=== PATIENT | female | born 1955 | race Caucasian/White ===

== ENCOUNTER 2020-04-09 12:42 | Outpatient (CLI) | payer MEDICARE, SELFPAY ==
--- NOTE | ~2020-04-09 | DEXA_ITS ---
Bone Density Report Name: Arcelia Dunbar Age: 65 Sex: Female Ethnicity: White Date of : 1955 Indication: osteopenia; parental hip fracture; height loss; hysterectomy; Referring Provider: SHA DARDEN Study: Bone densitometry was performed. Exam Date: April 09, 2020 Accession number: [id number] Bone Density: Region BMD T-score Z-score Classification AP Spine (L1, L2, L3) 1.144 1.1 2.9 Normal Femoral Neck (Left) 0.630 -2.0 -0.4 Osteopenia Total Hip (Left) 0.769 -1.4 -0.1 Osteopenia Total Hip Bilateral Avg 0.751 -1.6 -0.3 Osteopenia Femoral Neck (Right) 0.609 -2.2 -0.6 Osteopenia Total Hip (Right) 0.733 -1.7 -0.4 Osteopenia World Health Organization criteria for BMD impression classify patients as: Normal (T-score at or above -1.0), Osteopenia (T-score between -1.0 and -2.5), or Osteoporosis (T-score at or below -2.5). 10-year Fracture Risk(1): Major Osteoporotic Fracture 20% Hip Fracture 2.4% Reported Risk Factors: [place] (), Neck BMD=0.609, BMI=28.0, parental fracture (1) FRAX(R) Version 3.08. Fracture probability calculated for an untreated patient. Fracture probability may be lower if the patient has received treatment. Previous Exams: Region Exam Age BMD T-score BMD Change BMD Change Date g/cm2 vs Baseline vs Previous AP Spine(L1, L2, L3) 04/09/2020 65 1.144 1.1 0.049(4.5%)# 0.008(0.7%) 03/14/2017 62 1.136 1.1 0.042(3.8%)# 0.048(4.4%)* 02/13/2015 60 1.088 0.6 -0.006(-0.6%)# -0.006(-0.6%)# 12/26/2012 57 1.094 0.7 Total Hip(Left) 04/09/2020 65 0.769 -1.4 -0.030(-3.8%)# -0.037(-4.6%)* 03/14/2017 62 0.806 -1.1 0.007(0.8%)# 0.022(2.8%) 02/13/2015 60 0.784 -1.3 -0.015(-1.9%)# -0.015(-1.9%)# 12/26/2012 57 0.800 -1.2 Total Hip(Right) 04/09/2020 65 0.733 -1.7 -0.062(-7.8%)# -0.015(-2.0%) 03/14/2017 62 0.748 -1.6 -0.047(-5.9%)# -0.015(-2.0%) 02/13/2015 60 0.763 -1.5 -0.031(-3.9%)# -0.031(-3.9%)# 12/26/2012 57 0.794 -1.2 *Denotes significance at 95% confidence level, LSC for AP Spine = 0.022 g/cm2, LSC for Total Hip = 0.027 g/cm2 Clinical Information Provided by Patient: Parent has had a hip fracture Has used the following medications: Vitamin D, Calcium Has the following medical conditions: Hysterectomy Patient maximum height was 66 Menopause Age: 28 Drinks caffeinated beverages Onset of menses at age 11 Number of children 2
--- NOTE | ~2020-04-09 | MM_ITS ---
EXAMINATION: MM screening natali BI w colton HISTORY: Screening mammogram TECHNIQUE: Craniocaudal and mediolateral oblique 3-D tomosynthesis images were obtained and synthetic 2-D images were generated. CAD analysis was submitted and interpreted. COMPARISON: 03/20/2019, 03/16/2018, 03/14/2017 bilateral digital screening mammogram examinations BREAST PARENCHYMAL COMPOSITION: There are scattered areas of fibroglandular density. FINDINGS: Bilateral benign axillary tail lymph nodes. There is no evidence of suspicious mass, calcif ication, or architectural distortion to suggest malignancy in either breast. There has been no suspic ious interval change. IMPRESSION: 1. No mammographic evidence of malignancy. 2. Recommend routine screening mammography in one year. BI-RADS Category 2: Benign finding(s). Reviewed, dictated and finalized at location A. RVISOR WHITE SUGAR
== END 2020-04-09 12:43 | disposition home or self-care (01) ==
LOC: ANHIMG 12:46
PROVIDERS: PCP Family Medicine; Visit Provider Obstetrics & Gynecology Gynecology
DX: Z12.31 Encounter for screening mammogram for malignant neoplasm of breast (principal); Z78.0 Asymptomatic menopausal state; M85.852 Other specified disorders of bone density and structure, left thigh; M85.851 Other specified disorders of bone density and structure, right thigh
CPT/HCPCS: 77063; 77067; 77080

== ENCOUNTER 2021-01-19 08:22 | Outpatient (CLI) | payer MEDICARE, SELFPAY ==
--- NOTE | ~2021-01-19 | US_ITS ---
EXAMINATION: US abdomen limited EXAM DATE: 01/19/2021 09:29 INDICATION: R19.7 - Diarrhea, unspecified. TECHNIQUE: Multiple grayscale and Doppler images of the abdomen right upper quadrant were obtained (b y a technologist who performed the scan) and subsequently reviewed. There is no prior study for minal jay. FINDINGS: The pancreatic head and body are normal in appearance. The pancreatic tail is not visualized. The l iver has normal echogenicity and contour. There are no focal liver lesions identified. There is no evidence of intrahepatic biliary duct dilation. Portal venous flow was seen in the hepatopedal, nor mal direction and has normal Doppler waveform. No right-sided hydronephrosis. Common bile duct measures 4 mm, which is normal. The gallbladder wall is normal in thickness, with ex pected amount of distention. No sonographic evidence of pericholecystic fluid. There is no cholelit hiases. Technologist performing exam reports patient did not demonstrate sonographic Griffin's sign. Please note that this sign is less reliable in patients who have received pain medication. IMPRESSION: 1. Unremarkable abdominal ultrasound exam. Reviewed, dictated and finalized at location A. T CAREGIVER
== END 2021-01-19 08:23 | disposition home or self-care (01) ==
LOC: ANHIMG 08:24
PROVIDERS: PCP Family Medicine; Visit Provider Family Medicine
DX: R19.7 Diarrhea, unspecified (principal)
CPT/HCPCS: 76705

== ENCOUNTER 2021-04-21 09:12 | Outpatient (CLI) | payer MEDICARE, SELFPAY ==
--- NOTE | ~2021-04-21 | MM_ITS ---
EXAMINATION: MM screening natali BI w colton HISTORY: Screening mammogram TECHNIQUE: Craniocaudal and mediolateral oblique 3-D tomosynthesis images were obtained and synthetic 2-D images were generated. CAD analysis was submitted and interpreted. COMPARISON: April 09, 2020, March 20, 2019, March 16, 2018 bilateral screening mammogram exami nations BREAST PARENCHYMAL COMPOSITION: There are scattered areas of fibroglandular density. FINDINGS: There is no evidence of suspicious mass, calcification, or architectural distortion to sugg est malignancy in either breast. There has been no suspicious interval change. IMPRESSION: 1. No mammographic evidence of malignancy. 2. Recommend routine screening mammography in one year. BI-RADS Category 1: Negative Reviewed, dictated and finalized at location A. EMS ACCOUNTANT
== END 2021-04-21 09:13 | disposition home or self-care (01) ==
PROVIDERS: PCP Family Medicine; Visit Provider Obstetrics & Gynecology Gynecology
DX: Z12.31 Encounter for screening mammogram for malignant neoplasm of breast (principal)
CPT/HCPCS: 77063; 77067

== ENCOUNTER 2021-09-22 11:04 | Outpatient (CLI) | payer MEDICARE, SELFPAY ==
--- NOTE | ~2021-09-22 | XR_ITS ---
EXAMINATION: XR chest 2V 09/22/2021 11:18 INDICATION: Cough PROCEDURE: 2 view chest COMPARISON: 03/01/2013 FINDINGS: The lungs are clear. The cardiomediastinal silhouette is within normal limits. There are no pleural effusions. There is no pneumothorax suspected. There is a calcified granuloma right midl marybeth. IMPRESSION: 1: NO ACUTE CARDIOPULMONARY DISEASE. Reviewed, dictated and finalized at location A.
== END 2021-09-22 11:05 | disposition home or self-care (01) ==
PROVIDERS: PCP Family Medicine; Visit Provider Family Medicine
DX: R05.9 Cough, unspecified (principal)
CPT/HCPCS: 71046

== ENCOUNTER → 2022-04-16 14:09 | Outpatient (CLI) | payer MEDICARE, SELFPAY ==
--- NOTE | ~2022-04-16 | XR_ITS ---
XR hip BI 2V w AP pelvis DATE: 04/16/2022 14:28 INDICATION: Hip pain TECHNIQUE: AP pelvis. AP and lateral views of each hip. COMPARISON: None FINDINGS: No pelvic fracture or bone destruction. There is degenerative change but normal alignment a t the pubic symphysis. The sacroiliac joints are intact. No fracture or dislocation, avascular necrosis or bone destruction of either hip. Hip joint spaces ar e symmetric and relatively well preserved. IMPRESSION: Degenerative change at the pubic symphysis Reviewed, dictated and finalized at location A. L TECHNICIAN
== END ==
PROVIDERS: PCP Family Medicine; Visit Provider Nurse Practitioner Gerontology
DX: M25.559 Pain in unspecified hip (principal)
CPT/HCPCS: 73521

== ENCOUNTER 2022-04-22 08:32 | Outpatient (CLI) | payer MEDICARE, SELFPAY ==
--- NOTE | ~2022-04-22 | MM_ITS ---
EXAMINATION: MM screening natali BI w colton HISTORY: Screening mammogram TECHNIQUE: Craniocaudal and mediolateral oblique 3-D tomosynthesis images were obtained and synthetic 2-D images were generated. CAD analysis was submitted and interpreted. COMPARISON: April 21, 2021, April 09, 2020, March 20, 2019 bilateral screening mammogram exam inations BREAST PARENCHYMAL COMPOSITION: There are scattered areas of fibroglandular density. FINDINGS: There is no evidence of suspicious mass, calcification, or architectural distortion to sugg est malignancy in either breast. There has been no suspicious interval change. IMPRESSION: 1. No mammographic evidence of malignancy. 2. Recommend routine screening mammography in one year. BI-RADS Category 1: Negative Reviewed, dictated and finalized at location A. AND BEVERAGE CHECKER
--- NOTE | ~2022-04-22 | DEXA_ITS ---
Bone Density Report Name: ANGELES GARCIA Age: 67 Sex: Female Ethnicity: White Date of : 1955 Indication: osteopenia; hysterectomy; postmenopausal Referring Provider: ALANIS, WILLIAN Study: Bone densitometry was performed. Exam Date: April 22, 2022 Accession number: [id number] Bone Density: Region BMD T-score Z-score Classification AP Spine(L1, L2, L3) 1.118 0.9 2.9 Normal Femoral Neck (Left) 0.622 -2.0 -0.4 Osteopenia Total Hip (Left) 0.767 -1.4 0.0 Osteopenia Femoral Neck (Right) 0.621 -2.1 -0.4 Osteopenia Total Hip (Right) 0.773 -1.4 0.0 Osteopenia Total Hip Mean 0.770 -1.4 0.0 Osteopenia World Health Organization criteria for BMD impression classify patients as: Normal (T-score at or above -1.0), Osteopenia (T-score between -1.0 and -2.5), or Osteoporosis (T-score at or below -2.5). 10-year Fracture Risk(1): Major Osteoporotic Fracture 11% Hip Fracture 2.0% Reported Risk Factors: [place] (), Neck BMD=0.622, BMI=29.4 (1) FRAX(R) Version 3.08. Fracture probability calculated for an untreated patient. Fracture probability may be lower if the patient has received treatment. Previous Exams: Region Exam Age BMD T-score BMD Change BMD Change Date g/cm2 vs Baseline vs Previous AP Spine (L1-L3) 04/22/2022 67 1.118 0.9 0.024 (2.2%)# -0.025 (-2.2%) 04/09/2020 65 1.144 1.1 0.049 (4.5%)# 0.008 (0.7%) 03/14/2017 62 1.136 1.1 0.042 (3.8%)# 0.048 (4.4%)* 02/13/2015 60 1.088 0.6 -0.006 (-0.6%) -0.006 (-0.6%) 12/26/2012 57 1.094 0.7 Total Hip(Left) 04/22/2022 67 0.767 -1.4 -0.032 (-4.0%) -0.002 (-0.2%) 04/09/2020 65 0.769 -1.4 -0.030 (-3.8%) -0.037 (-4.6%) 03/14/2017 62 0.806 -1.1 0.007 (0.8%)# 0.022 (2.8%) 02/13/2015 60 0.784 -1.3 -0.015 (-1.9%) -0.015 (-1.9%) 12/26/2012 57 0.800 -1.2 Total Hip(Right) 04/22/2022 67 0.773 -1.4 -0.021 (-2.6%) 0.041 (5.6%)* 04/09/2020 65 0.733 -1.7 -0.062 (-7.8%) -0.015 (-2.0%) 03/14/2017 62 0.748 -1.6 -0.047 (-5.9%) -0.015 (-2.0%) 02/13/2015 60 0.763 -1.5 -0.031 (-3.9%) -0.031 (-3.9%) 12/26/2012 57 0.794 -1.2 *Denotes significance at 95% confidence level, LSC for AP Spine = 0.022 g/cm2, LSC for Total Hip = 0.027 g/cm2 # Denotes dissimilar scan types or analysis methods Clinical Information Provided by Patient: Has used the following medications: Vitamin D, Calcium Has the following medical conditions: Hysterectomy Patient fito
== END 2022-04-22 08:33 | disposition home or self-care (01) ==
PROVIDERS: PCP Family Medicine; Visit Provider Nurse Practitioner
DX: Z12.31 Encounter for screening mammogram for malignant neoplasm of breast (principal); M85.88 Other specified disorders of bone density and structure, other site; M85.852 Other specified disorders of bone density and structure, left thigh; M85.851 Other specified disorders of bone density and structure, right thigh
CPT/HCPCS: 77063; 77067; 77080

== ENCOUNTER 2022-10-12 04:08 | Day surgery (SDC) | payer MEDICARE, SELFPAY ==
[2022-09-28 15:06] VITALS: BMI 28.4
[2022-10-12 09:40] VITALS: BP 150/77; PULSE 82; RESP 18; TEMP 36.2; O2SAT 100
--- NOTE | 2022-10-12 09:50 | WPDANESEPPF ---
Anes - Initial Pre Proc Eval Procedure: Operation Date: 10/12/22 11:00 Proposed Procedures p Esophagogastroduodenoscopy & Screen Colonoscopy - Christopher Madrigal MD Date/Time: 10/12/22 09:50 Surgeon: Christopher Madrigal MD Pre Op Diagnosis: neoplasm screening, epigastric pain Patient Data Age: 67 Gender: F Height: 1.68 m Weight: 78.9 kg Last Vital Signs Temp 36.2 C L 10/12/22 09:40 Pulse 82 10/12/22 09:40 Resp 18 10/12/22 09:40 BP 150/77 H 10/12/22 09:40 Pulse Ox 100 10/12/22 09:40 O2 Del Method Room Air 10/12/22 09:40 Allergies Allergy/AdvReac Type Severity Reaction Status Date / Time epinephrine AdvReac Mild HEART Verified 10/12/22 09:39 RACES-FEEL LIKE WILL PASS OUT Home Medications Medication Instructions Recorded Confirmed Type aspirin 81 mg chewable tablet 81 mg PO DAILY 01/29/20 09/28/22 History calcium carbonate 600 mg calcium 600 mg PO DAILY 01/29/20 09/28/22 History (1,500 mg) tablet (Calcium) cholecalciferol (vitamin D3) 1 100 ml PO DAILY 01/29/20 09/28/22 History multivit,Ca,zue-vyja-[place]-guarana-caff 1 tablet PO DAILY 01/29/20 09/28/22 History 18 mg iron-400 mcg-180 mg tablet (One-A-Day Women's Active) carvedilol 12.5 mg tablet See Rx Instructions .Route 06/17/22 09/28/22 Rx .COMPLEX #270 tabs hydrochlorothiazide 12.5 mg capsule See Rx Instructions .Route 08/27/22 09/28/22 Rx .COMPLEX #90 caps atorvastatin 10 mg tablet See Rx Instructions .Route 09/16/22 09/28/22 Rx .COMPLEX #90 tabs sodium,potassium,mag sulfates 17.5 See Rx Instructions PO .COMPLEX 09/17/22 09/28/22 Rx gram-3.13 gram-1.6 gram oral soln #354 mL (Suprep Bowel Prep Kit) Patient hx anesthesia problems: none Family hx anesthesia problems: none Results Review: All pre-operative results and documents have been reviewed as part of the pre-operative evaluation. PMFSH Past Medical History Medical History Benign reactive hypertension CAD in [place] artery Ear pain History of MRSA infection Lateral epicondylitis, right elbow Medial epicondylitis of left elbow Mixed hyperlipidemia Shingles Trochanteric bursitis, right hip Varicose veins of bilateral lower extremities with other complications Vitamin D deficiency Surgical History Surgical History H/O emergency section History of total abdominal hysterectomy Hx of knee surgery S/P coronary artery stent placement Family History Family History Mother Hypertension Father Hypertension Family history of lung cancer Other Diabetes mellitus Lateral epicondylitis, right elbow Social History Social History Social History: Smoking status: Never smoker Second hand tobacco smoke exposure: No Alcohol intake: current Alcohol use details: rarely Substance use: never Substance use type: does not use Lack of Transportation: No Lack of Food: Never True Current Housing: I Have Housing Concerned About Future Housing: No Difficulty Paying Gas/Electric Bills: No Difficulty Paying for Meds: No Currently Unemployed: No Education: High School Diploma/GED Difficulty w/ Childcare or Family Care: No Living arrangements: with family Occupation/Education: retired Gender identity (if verbalized by the patient): Female Sexual Orientation (if Verbalized by the Patient): Straight or Heterosexual Spiritual care concerns: No Anes - Eval Final PreProcedure Day of Procedure 10/12/22 09:50 Patient weight: overweight Heart: regular rate and rhythm Lungs: clear to auscultation Airway: Mallampati scale class II Neurological: alert and oriented Last oral intake: >/= 8 hours ASA classification: III Emergent: no Anesthetic plan: proceed Ane
[2022-10-12] MEDS: LACTATED RINGERS 1,000 ML 150 ML IV CONT (09:56)
--- NOTE | 2022-10-12 10:02 | PM.HPGS ---
History of Present Illness History of Present Illness Consent: Risks, benefits, and alternatives have been discussed and questions answered. Patient agrees to proceed with procedure. Chief complaint: neoplasm screening, epigastric pain Narrative: Arcelia Dunbar is a 67 year old female Presents for both colonoscopy and EGD on referral from Dr. Gomez. Patient reports having had nausea for the last 2 months. She denies abdominal pain. She has had no weight loss. She states no change in medications is occurred. She has had no recent travel. She denies any known precipitating factors. She was given a trial of pantoprazole with no change in symptoms. Patient reports having previous colonoscopy 10 years ago was due for screening exam. Referred today for both colonoscopy an EGD. Patient reports that her bowel habits are normal. She denies any blood in her stools. Family history noncontributory. Review of Systems Review of Systems: Review of systems noncontributory. REPLACED BY [facility] Past Medical History Medical History Benign reactive hypertension CAD in [place] artery Ear pain History of MRSA infection Lateral epicondylitis, right elbow Medial epicondylitis of left elbow Mixed hyperlipidemia Shingles Trochanteric bursitis, right hip Varicose veins of bilateral lower extremities with other complications Vitamin D deficiency Surgical History Surgical History H/O emergency section History of total abdominal hysterectomy Hx of knee surgery S/P coronary artery stent placement Family History Family History Mother Hypertension Father Hypertension Family history of lung cancer Other Diabetes mellitus Lateral epicondylitis, right elbow Social History Social History Social History: Smoking status: Never smoker Second hand tobacco smoke exposure: No Alcohol intake: current Alcohol use details: rarely Substance use: never Substance use type: does not use Lack of Transportation: No Lack of Food: Never True Current Housing: I Have Housing Concerned About Future Housing: No Difficulty Paying Gas/Electric Bills: No Difficulty Paying for Meds: No Currently Unemployed: No Education: High School Diploma/GED Difficulty w/ Childcare or Family Care: No Living arrangements: with family Occupation/Education: retired Gender identity (if verbalized by the patient): Female Sexual Orientation (if Verbalized by the Patient): Straight or Heterosexual Spiritual care concerns: No Meds Home Medications and Allergies Home Medications Medication Instructions Recorded Confirmed Type aspirin 81 mg chewable tablet 81 mg PO DAILY 01/29/20 09/28/22 History calcium carbonate 600 mg calcium 600 mg PO DAILY 01/29/20 09/28/22 History (1,500 mg) tablet (Calcium) cholecalciferol (vitamin D3) 1 100 ml PO DAILY 01/29/20 09/28/22 History multivit,Ca,xhn-qayl-[place]-guarana-caff 1 tablet PO DAILY 01/29/20 09/28/22 History 18 mg iron-400 mcg-180 mg tablet (One-A-Day Women's Active) carvedilol 12.5 mg tablet See Rx Instructions .Route 06/17/22 09/28/22 Rx .COMPLEX #270 tabs hydrochlorothiazide 12.5 mg capsule See Rx Instructions .Route 08/27/22 09/28/22 Rx .COMPLEX #90 caps atorvastatin 10 mg tablet See Rx Instructions .Route 09/16/22 09/28/22 Rx .COMPLEX #90 tabs sodium,potassium,mag sulfates 17.5 See Rx Instructions PO .COMPLEX 09/17/22 09/28/22 Rx gram-3.13 gram-1.6 gram oral soln #354 mL (Suprep Bowel Prep Kit) Allergies Allergy/AdvReac Type Severity Reaction Status Date / Time epinephrine AdvReac Mild HEART Verified 10/12/22 09:39 RACES-FEEL LIKE WILL PASS OUT Vital Signs Vital Signs - 24 hr 10/12/22 09
--- NOTE | 2022-10-12 10:44 | SUR.OPER ---
EGD: start: 1043, stop: 1045 Colon: start: 1051, stop: 1102
[2022-10-12 11:08] VITALS: BP 108/65; PULSE 74; RESP 14; O2SAT 98
[2022-10-12 11:18] VITALS: BP 105/64; PULSE 76; RESP 20; O2SAT 98
[2022-10-12 11:28] VITALS: BP 121/74; PULSE 79; RESP 20; O2SAT 98
== END 2022-10-12 11:43 | disposition home or self-care (01) ==
PROVIDERS: PCP Family Medicine; Visit Provider Internal Medicine Gastroenterology
PROC: 0DJ08ZZ Inspection of Upper Intestinal Tract, Via Natural or Artificial Opening Endoscopic (ICD-10-PCS; CPT 43235; principal; 2022-10-12 11:00)
DX: Z12.11 Encounter for screening for malignant neoplasm of colon (principal); K64.8 Other hemorrhoids; R11.0 Nausea; R10.13 Epigastric pain; I25.10 Atherosclerotic heart disease of native coronary artery without angina pectoris; E78.2 Mixed hyperlipidemia; I10 Essential (primary) hypertension; E55.9 Vitamin D deficiency, unspecified; Z79.82 Long term (current) use of aspirin; Z95.5 Presence of coronary angioplasty implant and graft
CPT/HCPCS: 43239; G0121; 87081; J2704; J7120

== ENCOUNTER → 2023-04-25 14:02 | Outpatient (CLI) | payer MEDICARE, SELFPAY ==
--- NOTE | ~2023-04-25 | MR_ITS ---
EXAMINATION: MR lumbar spine wo con DATE: 04/25/2023 14:49 INDICATION: Low back pain, unspecified. TECHNIQUE: Magnetic resonance imaging (MRI) of the lumbar spine was performed without intravenous con trast. Sequences included sagittal T2-weighted FSE, sagittal T2-weighted FS FSE, sagittal T1-weighted FSE, and axial T2-weighted FSE. COMPARISON: Lumbar spine MRI 12/07/2018 FINDINGS: There is 3 mm retrolisthesis of L1 on L2 and L2 on L3 and 3 mm anterolisthesis of L4 on L5. There is mild chronic anterior wedging of T10 and T11 vertebral bodies. There is mildly decreased di sc height at T10-T11 and T11-T12, moderately decreased disc height at T12-L1, mildly decreased disc h eight at L1-L2, moderately decreased disc height at L2-L3, and mildly decreased disc height at L3-L4 and L4-L5. The distal spinal cord signal intensity is normal. The conus medullaris is at L1. The foll owing disc levels are specifically discussed: L1-L2: The disc is bulging. There is mild bilateral facet joint osteoarthritis. There is mild bilater al neural foraminal stenosis. There is mild central canal stenosis. L2-L3: The disc is bulging and has an annular fissure. There is mild bilateral facet joint osteoarthr itis. There is mild bilateral neural foraminal stenosis. There is mild central canal stenosis. L3-L4: The disc is bulging and has an annular fissure. There is mild bilateral facet joint osteoarthr itis. There is mild bilateral neural foraminal stenosis. There is mild central canal stenosis. L4-L5: The disc is bulging. There is severe bilateral facet joint osteoarthritis. There is mild bilat eral neural foraminal stenosis. There is mild central canal stenosis. L5-S1: The disc does not extend beyond the endplate margin. There is severe bilateral facet joint ost eoarthritis. There is mild right neural foraminal stenosis. There is no central canal stenosis. IMPRESSION: 1. Moderate lumbar spondylosis, slightly worsened from 12/07/2018. Reviewed, dictated and finalized at location A. ONAL SALES ASSOCIATE
--- NOTE | ~2023-04-25 | MR_ITS ---
EXAMINATION: MR sacroiliac jaziel wo con DATE: 04/25/2023 14:57 INDICATION: Sacrococcygeal disorders, not elsewhere classified. Bilateral hip pain. Low back pain. TECHNIQUE: Magnetic resonance imaging (MRI) of the sacroiliac joints was performed without intravenou s contrast. COMPARISON: Pelvis and hip radiographs 04/12/2023 FINDINGS: Bone alignment is normal. No fracture. There is mild lumbar spondylosis. There is mild oste oarthritis of the sacroiliac joints. IMPRESSION: 1. Mild osteoarthritis of the sacroiliac joints. No evidence of inflammatory arthropathy. Reviewed, dictated and finalized at location A. OR RECRUITMENT CONSULTANT IMPRESSION: 1. Mild osteoarthritis of the sacroiliac joints. No evidence of inflammatory ar thropathy.
== END ==
PROVIDERS: PCP Nurse Practitioner Family; Visit Provider Nurse Practitioner Family
DX: M53.3 Sacrococcygeal disorders, not elsewhere classified (principal); G89.29 Other chronic pain; M47.896 Other spondylosis, lumbar region
CPT/HCPCS: 72148; 72195

== ENCOUNTER 2023-06-07 08:29 | Outpatient (CLI) | payer MEDICARE, SELFPAY ==
--- NOTE | ~2023-06-07 | MM_ITS ---
EXAMINATION: MM screening natali BI w colton HISTORY: Screening mammogram TECHNIQUE: Craniocaudal and mediolateral oblique 3-D tomosynthesis images were obtained and synthetic 2-D images were generated. CAD analysis was submitted and interpreted. COMPARISON: April 22, 2022, April 21, 2021 bilateral screening mammogram examinations BREAST PARENCHYMAL COMPOSITION: There are scattered areas of fibroglandular density. FINDINGS: Focal asymmetries are noted in the right breast. Diagnostic right mammogram is recommended, with ultrasound if required. Otherwise no suspicious mass, architectural distortion, malignant calcification, skin thickening or r etraction of either breast is detected. IMPRESSION: 1. Right mammographic asymmetries 2. Diagnostic right mammogram is recommended, with ultrasound if required BI-RADS Category 0: Incomplete: Needs additional imaging evaluation. Reviewed, dictated and finalized at location A.
== END 2023-06-07 08:30 | disposition home or self-care (01) ==
PROVIDERS: PCP Family Medicine; Visit Provider Nurse Practitioner
DX: Z12.31 Encounter for screening mammogram for malignant neoplasm of breast (principal); R92.8 Other abnormal and inconclusive findings on diagnostic imaging of breast
CPT/HCPCS: 77063; 77067

== ENCOUNTER 2023-06-22 12:36 | Outpatient (CLI) | payer MEDICARE, SELFPAY ==
--- NOTE | ~2023-06-22 | MMUS_ITS ---
EXAMINATION: MM diagnostic natali RT w colton, US breast RT complete HISTORY: Right mammographic asymmetries reported on June 07, 2023 screening mammogram TECHNIQUE: Additional 3-D tomosynthesis images of the right breast were performed and synthetic 2-D i mages were generated. CAD analysis was submitted and interpreted. High resolution complete right leydi st ultrasound examination including all 4 quadrants and subareolar area was performed. COMPARISON: June 07, 2023, April 22, 2022, April 21, 2021, April 09, 2020 bilateral screenin g mammogram examinations FINDINGS: MAMMOGRAPHIC FINDINGS: No reproducible suspicious mass or architectural distortion is detected. ULTRASOUND: No suspicious mass or shadowing is detected. IMPRESSION: 1. No evidence of malignancy 2. Routine annual mammographic screening is recommended BI-RADS Category 1: Negative Reviewed, dictated and finalized at location A. IMPRESSION: 1. No evidence of malignancy 2. Routine annual mammographic screening is recommended BI-RADS Category 1: Negative
== END 2023-06-22 12:37 | disposition home or self-care (01) ==
PROVIDERS: PCP Family Medicine; Visit Provider Obstetrics & Gynecology Gynecology
DX: R92.8 Other abnormal and inconclusive findings on diagnostic imaging of breast (principal)
CPT/HCPCS: 76641; 77061; 77065; G0279

== ENCOUNTER 2024-06-11 09:39 | Outpatient (CLI) | payer MEDICARE, SELFPAY ==
--- NOTE | ~2024-06-11 | DEXA_ITS ---
Bone Density Report Name: ANGELES GARCIA Age: 69 Sex: Female Ethnicity: White Date of : 1955 Indication: osteopenia; parental hip fracture; height loss; hysterectomy; secondary osteoporosis; Referring Provider: JC VERDE Study: Bone densitometry was performed. Exam Date: June 11, 2024 Accession number: [id number] Bone Density: Region BMD T-score Z-score Classification AP Spine(L1-L4) 1.061 0.1 2.3 Normal Femoral Neck (Left) 0.633 -1.9 -0.1 Osteopenia Total Hip (Left) 0.790 -1.2 0.3 Osteopenia Femoral Neck (Right) 0.616 -2.1 -0.3 Osteopenia Total Hip (Right) 0.729 -1.7 -0.2 Osteopenia Total Hip Mean 0.759 -1.5 0.1 Osteopenia World Health Organization criteria for BMD impression classify patients as: Normal (T-score at or above -1.0), Osteopenia (T-score between -1.0 and -2.5), or Osteoporosis (T-score at or below -2.5). 10-year Fracture Risk(1): Major Osteoporotic Fracture 19% Hip Fracture 5.0% Reported Risk Factors: [place] (), Neck BMD=0.616, BMI=29.8, parental fracture, secondary osteoporosis (1) FRAX(R) Version 3.08. Fracture probability calculated for an untreated patient. Fracture probability may be lower if the patient has received treatment. Previous Exams: Region Exam Age BMD T-score BMD Change BMD Change Date g/cm2 vs Baseline vs Previous AP Spine (L1-L4) 06/11/2024 69 1.061 0.1 -0.074 (-6.5%) -0.074 (-6.5%) 12/26/2012 57 1.136 0.8 Total Hip(Left) 06/11/2024 69 0.790 -1.2 -0.009 (-1.2%) 0.023 (2.9%) 04/22/2022 67 0.767 -1.4 -0.032 (-4.0%) -0.002 (-0.2%) 04/09/2020 65 0.769 -1.4 -0.030 (-3.8%) -0.037 (-4.6%) 03/14/2017 62 0.806 -1.1 0.007 (0.8%)# 0.022 (2.8%) 02/13/2015 60 0.784 -1.3 -0.015 (-1.9%) -0.015 (-1.9%) 12/26/2012 57 0.800 -1.2 Total Hip(Right) 06/11/2024 69 0.729 -1.7 -0.066 (-8.3%) -0.045 (-5.8%) 04/22/2022 67 0.773 -1.4 -0.021 (-2.6%) 0.041 (5.6%)* 04/09/2020 65 0.733 -1.7 -0.062 (-7.8%) -0.015 (-2.0%) 03/14/2017 62 0.748 -1.6 -0.047 (-5.9%) -0.015 (-2.0%) 02/13/2015 60 0.763 -1.5 -0.031 (-3.9%) -0.031 (-3.9%) 12/26/2012 57 0.794 -1.2 *Denotes significance at 95% confidence level, LSC for AP Spine = 0.022 g/cm2, LSC for Total Hip = 0.027 g/cm2 # Denotes dissimilar scan types or analysis methods Clinical Information Provided by Patient: Parent has had a hip fracture Has secondary osteoporosis Has used the following medications: Actonel (i.e. risedronate), Boniva (i.e. ibandronate), Fosamax (i.e. alendronate), HRT (i.e. estrogen/hormone therapy), Vitamin D, Calcium Has the following medical conditions: Hysterectomy Patient maximum height was 66 Menopause Age: 28 Drinks caffeinated beverages Onset of menses at age 12 Number of children 2 Impression: The patient has low bone mass, based on the Right Femoral Neck T-score. The patient has an estimated ten-year risk of hip fracture of 5% and an estimated ten-year risk of major fracture of 19%, based on the WHO FRAX algorithm. The patient has risk factors, including: parental hip fracture. The BMD for the Total Hip(Right) decreased, changing by -5.8% since the last DXA exam. Discussion: BONE DENSITY IS LOW AT ONE OR MORE SKELETAL SITES. THE PATIENT'S BMD AND CLINICAL RISK FACTORS CONTRIBUTE TO THIS PATIENT'S INCREASED RISK OF FRACTURE. This patient's lowest T-score is low at one or more skeletal sites. It meets the World Health Organization's (WHO) criteria for ?low bone mass? (T-score between -1.0 and -2.5). The patient's 10-year risk of hip fracture as calculated by FRAX exceeds the threshold where pharmacological therapy is recommended by the National Osteoporosis Foundation (NOF). However, all treatment decisions require clinical judgment and consideration of individual patient factors, including patient preferences, comorbidities, previous drug use, risk factors not captured in the FRAX model (e.g., frailty, falls, vitamin D deficiency, increased bone turnover, interval significant decline in bone density) and possible under or overestimation of fracture risk by FRAX. The patient should follow a healthful lifestyle (good nutrition with adequate calcium and vitamin D, and appropriate weight-bearing exercise). Follow-Up: Consider a repeat BMD and Vertebral Fracture Assessment (VFA) exam in 2 years or sooner if medically necessary, to reassess this patient's status. Reported by: APOLLO on 06/11/2024 10:19:00 AM. Reviewed, dictated and finalized at location AJeana VELASQUEZ
--- OUTSIDE RECORDS SUMMARY | 2024-06-11 10:32 | XMS_ITS | Clinical Summary ---
Author Organization [facility] [address] Address [address] [place] [address] Care Team Providers Care Iron Guardrail Installer Name Role Phone Patricia Maldonado MD Primary Care Provider Allergies No known active allergies Medications hydroCHLOROthia zide (MICROZIDE) 12.5 mg capsule take 1 capsule by ORAL route every day 0 0 4 Active ergocalciferol (VITAMIN D2) 50,000 unit capsule take 1 capsule by oral route every month 0 0 4 Active multivitamin (MULTIPLE VITAMINS) tablet tablet take 1 tablet by oral route every day with food 0 0 4 Active nitroglycerin (NITROSTAT) 0.[address] 1 tablet by sublingual route at the 1st sign of attack; may repeat every 5 min until relief; if pain persists after 3 tablets in 15 min, prompt medical attention is recommended 0 0 4 Active carvedilol (COREG) 12.5 mg tablet take 2 tables AM & 1 tablet PM. 0 0 4 Active aspirin 81 mg tablet take 1 tablet by oral route every day 0 0 4 Active calcium carbonate (CALCIUM 500 ORAL) Take 1 tablet by mouth 2 (two) times a day Active cholecalciferol (VITAMIN D-3) 2000 unit capsule Take 1 capsule (2,000 Units total) by mouth daily Active atorvastatin (LIPITOR) 10 mg tablet TAKE 1 TABLET BY MOUTH EVERY DAY 90 tablet 2 4 Active Active Problems Problem Noted Date Diagnosed Date H/O heart artery stent 09/10/2016 Snoring 01/07/2016 Overview (06/04/2016): Snoring Palpitations 01/07/2016 Overview (06/04/2016): Palpitations Atherosclerosis of coronary artery 02/12/2014 Overview (06/04/2016): Coronary atherosclerosis Hyperlipidemia 02/12/2014 Overview (06/04/2016): Hyperlipidemia Essential hypertension 02/12/2014 Overview (06/04/2016): Essential hypertension Encounters Date Type Department Care Team Description 03/20/2024 9:00 AM MACHINE OPERATORS Office Visit [facility] Cardiology at [address] [place] [address] Virgil Escudero MD H/O heart artery stent (Primary Dx); Atherosclerosis of [place] coronary artery of [place] heart without angina pectoris from Last 3 Months Immunizations Immunization Administration Dates Next Due Moderna SARS-CoV-2 Monovalent Vaccination (12+ Y RS) 05/29/2020 Surgical History Surgery Date Site/Laterality Comments HYSTERECTOMY Hysterectomy OTHER SURGICAL HISTORY Caesarean Section x 2 APPENDECTOMY Appendectomy KNEE ARTHROSCOPY W/ LATERAL RELEASE 02/28/1982 - 02/27/1983 SECTION 1977. 1981 ANGIOPLASTY Feb 2013 Medical History Medical History Date Comments Hx Other Medical Carpal Tunnel Hx Other Medical r. knee fx Hx Other Medical Varicose Veins Hypertension Hypertension H/O heart artery stent 09/10/2016 Arthritis Last few years Osteoporosis 2010 Heart disease Family History Medical History Relation Name Comments Cancer Father Martin Sotelo Hypertension Father Martin Sotelo Other Father Martin Sotelo Natural causes; Cause of : Natural causes Alzheimer's disease Mother Lianna Sotelo Hypertension Mother Lianna Sotelo Other Mother Lianna Sotelo Has PPM; Diabetes Paternal Grandmother Oscar Sotelo Relation Name Status Comments Father Martin Sotelo (Age 95) Mother Lianna Sotelo Alive Paternal Grandmother Oscar Sotelo Social History Tobacco Use Types Packs/Day Years Used Date Smoking Tobacco: Never Cigarettes Smokeless Tobacco: Never Tobacco Cessation:Counseling Given: Not Answered Alcohol Use Standard Drinks/Week Comments No 0 (1 standard drink = 0.6 oz pur e alcohol) Comments Unknown Sex and Gender Information Value Date Recorded Sex Assigned at Not on file Legal Sex Female 3:08 AM MACHINE OPERATORS Gender Identity Not on file Sexual Orientation Not on file Obstetrics History Last Filed Vital Signs Vital Sign Reading Time Taken Comments Blood Pressure 120/76 03/20/2024 8:52 AM MACHINE OPERATORS Pulse 66 03/20/2024 8:52 AM MACHINE OPERATORS Temperature - - Respiratory Rate 16 08/09/2019 10:55 AM CDT Oxygen Saturation 98% 03/20/2024 8:52 AM MACHINE OPERATORS Inhaled Oxygen Concentration - - Weight 80.7 kg (178 lb) 03/20/2024 8:52 AM MACHINE OPERATORS Height 167.6 cm (5' 6 ) 03/20/2024 8:52 AM MACHINE OPERATORS Body Mass Index 28.73 03/20/2024 8:52 AM MACHINE OPERATORS Plan of Treatment Health Maintenance Due Date Last Done Comments Breast Cancer Screening-Mammogram 1955 Colon Cancer Screening-Colonoscopy 1955 Depression Screening 1955 Fall Risk Assessment 1955 Hepatitis C Screening 1955 Osteoporosis Screening-Bone Density Scan 1954 DTaP/Tdap/Td Vaccine (1 - Tdap) 1965 Hepatitis B Screening 02/07/1972 Pneumococcal vaccine 65+ (1 of 1 - PCV) 02/07/2004 Zoster Vaccine (1 of 2) 02/07/2004 Well Visit 65+ 2019 Covid-19 Vaccine (2 - season) 10/30/202302/2020 Influenza Vaccine (#1) 2023 Insurance [employer] MEDICARE A[employer] MEDICARE Care Teams Iron Guardrail Installer Relationship Specialty Start Date End Date Patricia Maldonado MD [address] [facility] [address] [place] [address] PCP - General 02/12/14
--- OUTSIDE RECORDS SUMMARY | 2024-06-11 10:32 | XMS_ITS | Referral Summary ---
Author Organization [facility] [address] Address [address] [place] [address] Care Team Providers Care Lead Infrastructure Architect Name Role Phone Patricia Maldonado MD Primary Care Provider Encounters Date Type Department Care Team Description 03/20/2024 9:00 AM WOOD MACHINE CARVER Office Visit [facility] Cardiology at [address] [place] [address] Virgil Escudero MD H/O heart artery stent (Primary Dx); Atherosclerosis of [place] coronary artery of [place] heart without angina pectoris from Last 3 Months Allergies No known active allergies Medications hydroCHLOROthia [...] Essential hypertension 02/12/2014 Overview (06/04/2016): Essential hypertension Immunizations Immunization Administration Dates Next Due Moderna SARS-CoV-2 Monovalent Vaccination (12+ Y RS) 05/29/2020 Social History Tobacco Use Types Packs/Day Years Used Date Smoking Tobacco: Never Cigarettes Smokeless Tobacco: Never Tobacco Cessation:Counseling Given: Not Answered Alcohol Use Standard Drinks/Week Comments No 0 (1 standard drink = 0.6 oz pur e alcohol) Comments Unknown Sex and Gender Information Value Date Recorded Sex Assigned at Not on file Legal Sex Female 3:08 AM WOOD MACHINE CARVER Gender Identity Not on file Sexual Orientation Not on file Last Filed Vital Signs Vital Sign Reading Time Taken Comments Blood Pressure 120/76 03/20/2024 8:52 AM WOOD MACHINE CARVER Pulse 66 03/20/2024 8:52 AM WOOD MACHINE CARVER Temperature - - Respiratory Rate 16 08/09/2019 10:55 AM CDT Oxygen Saturation 98% 03/20/2024 8:52 AM WOOD MACHINE CARVER Inhaled Oxygen Concentration - - Weight 80.7 kg (178 lb) 03/20/2024 8:52 AM WOOD MACHINE CARVER Height 167.6 cm (5' 6 ) 03/20/2024 8:52 AM WOOD MACHINE CARVER Body Mass Index 28.73 03/20/2024 8:52 AM WOOD MACHINE CARVER Plan of Treatment Not on file Insurance [facility] MEDICARE T MEDICARE Care Teams Lead Infrastructure Architect Relationship Specialty Start Date End Date Patricia Maldonado MD [address] [facility] [address] [place] [address] PCP - General 02/12/14
--- OUTSIDE RECORDS SUMMARY | 2024-06-11 10:32 | XMS_ITS | Clinical Summary ---
Author Organization [facility] Address [address] [facility] [address] Care Team Providers Care Sheriff'S Officer Name Role Phone Unavailable Primary Care Provider Unavailabl e Source Comments [facility],non-owned Affiliates and Associated Physician Practices is amultiple site organization consisting of ambulatory clinics and hospital sitesin [place], [place], [place] and [place]. This disclosure is being madepursuant to the Care Everywhere program and may not contain all information available regarding this patient. Last updated 17.[facility] Allergies No known active allergies Medications * Be aware that medications may not be up to date on this document. Alwaysverify current medications with the patient. carvedilol (COREG) 1.25 mg/ml SUSP suspension Take by mouth 2 times daily Active HYDROCHLOROTHIA ZIDE PO Active atorvastatin (LIPITOR) 10 MG tablet Take 10 mg by mouth at bedtime Active vitamin D, ergocalciferol, (DRISDOL) 1.25 MG (02609 UT) capsule Take 50,000 Units by mouth every 30 days Active benzonatate (TESSALON) 200 MG capsule Take 1 capsule by mouth 3 times daily as needed for Cough 30 capsule 01/26/2019 Active Social History Tobacco Use Types Packs/Day Years Used Date Smoking Tobacco: Never Smokeless Tobacco: Never Alcohol Use Standard Drinks/Week Comments Yes 0 (1 standard drink = 0.6 oz pur e alcohol) Comments Unknown Sex and Gender Information Value Date Recorded Sex Assigned at Not on file Legal Sex Female 3:46 PM RIGGING FOREMAN Gender Identity Not on file Sexual Orientation Not on file Last Filed Vital Signs Vital Sign Reading Time Taken Comments Blood Pressure 142/80 01/26/2019 5:05 PM RIGGING FOREMAN Pulse 79 01/26/2019 5:05 PM RIGGING FOREMAN Temperature 37.3 C (99.2 F) 01/26/2019 5:05 PM RIGGING FOREMAN Respiratory Rate 16 01/26/2019 5:05 PM RIGGING FOREMAN Oxygen Saturation 98% 01/26/2019 5:05 PM RIGGING FOREMAN Inhaled Oxygen Concentration - - Weight 77.1 kg (170 lb) 01/26/2019 5:05 PM RIGGING FOREMAN Height 167.6 cm (5' 6 ) 01/26/2019 5:05 PM RIGGING FOREMAN Body Mass Index 27.44 01/26/2019 5:05 PM RIGGING FOREMAN Plan of Treatment Health Maintenance Due Date Last Done Comments BONE DENSITY TESTING 1955 COLOGUARD (AGES 45-75) - COL ON CA SCREENING 1954 COLON MONITORING 1954 COLONOSCOPY - COLON CA SCREENING 1954 CT COLONOGRAPHY - COLON CA SCREENING 1954 Colorectal Cancer Screening 1954 FIT - COLON CA SCREENING 1954 FLEX SIG - COLON CA SCREENING 1954 MAMMOGRAM 1954 HEPATITIS C SCREENING 02/02/1972 DTAP/TDAP/TD VACCINES (1 - Tdap) 1973 PNEUMOCOCCAL VACCINE 50+ (1 of 1 - PCV) 02/07/2004 ZOSTER VACCINE (1 of 2) 02/07/2004 SCREENING FOR DIABETES 01/26/2019 COVID-19 VACCINE (1 - 2023-2 5 season) 2023 DEPRESSION SCREENING 02/29/2024 INFLUENZA VACCINE (Season Ended) 2024 Respiratory Syncytial Virus (RSV) Vaccine Pt: or over 60 yrs (1 - 1-dose 75+ series) 2029 HEPATITIS B VACCINE Aged Out No longe r eligible based on patient's age to complete this topic HIB VACCINE Aged Out No longer eligi ble based on patient's age to complete this topic HPV VACCINE Aged Out No longer eligi ble based on patient's age to complete this topic MENINGOCOCCAL (Group B) VACC INE SHARED DECISION-MAKING Aged Out No longer eligibl e based on patient's age to complete this topic MENINGOCOCCAL GROUPS A/C/Y/W VACCINE Aged Out No longer eligible b ased on patient's age to complete this topic Insurance [employer]
--- OUTSIDE RECORDS SUMMARY | 2024-06-11 10:32 | XMS_ITS | Clinical Summary ---
Author Organization [facility] Address [address] [place] [address] Care Team Providers Care Science Editor Name Role Phone Unavailable Primary Care Provider Unavailabl e Social History Tobacco Use Types Packs/Day Years Used Date Smoking Tobacco: Never Assessed Comments Unknown Sex and Gender Information Value Date Recorded Sex Assigned at Not on file Legal Sex Female 7:14 PM CDT Gender Identity Not on file Sexual Orientation Not on file Plan of Treatment Health Maintenance Due Date Last Done Comments Colorectal Cancer Screening Colonoscopy (10 Years) 1954 Hepatitis C 02/07/1972 DTaP, Tdap and Td Vaccines ( 1 - Tdap) 1973 Mammogram Screening 1994 Zoster Vaccines (1 of 2) 02/07/2004 Dexa Scan (General) 2019 Pneumococcal Vaccine: 50+ Ye ars (1 of 1 - PCV) 2019 COVID-19 Vaccine ( - 2023-2 5 season) 2023 RSV Immunization or 60+ Years (1 - 1-dose 75+ series) 2029 Meningococcal B Vaccine Aged Out No l onger eligible based on patient's age to complete this topic Meningococcal Vaccine Aged Out No whitney brady eligible based on patient's age to complete this topic RSV Immunizations Under 20 Months Aged Out No longer eligible based on patient's age to complete this topic
--- OUTSIDE RECORDS SUMMARY | 2024-06-11 10:32 | XMS_ITS | Encounter Summary ---
Author Organization [facility] Care Team Providers Care Rotary Cutter Feeder Name Role Phone Patricia Maldonado MD Primary Care Provider Encounter Details Date Type Department Care Team (Latest Contact Info) Description 04/07/2018 Orders Only [facility] CLINCON[facility] ProviderDonita MD [address] [place] [address] Social History Tobacco Use Types Packs/Day Years Used Date Smoking Tobacco: Never Smokeless Tobacco: Never Alcohol Use Standard Drinks/Week Comments No 0 (1 standard drink = 0.6 oz pur e alcohol) Comments Unknown Sex and Gender Information Value Date Recorded Sex Assigned at Not on file Legal Sex Female 3:08 AM MATH AND SCIENCES DEPARTMENT CHAIR Gender Identity Not on file Sexual Orientation Not on file documented as of this encounter Plan of Treatment Not on file documented as of this encounter Procedures Procedure Name Priority Date/Time Associated Diagnosis Comments PROCEDURE - RESULT 03/23/2018 12 :00 AM MATH AND SCIENCES DEPARTMENT CHAIR documented in this encounter Results * PROCEDURE - RESULT (03/23/2018 12:00 AM MATH AND SCIENCES DEPARTMENT CHAIR) Narrative 03/23/2018 12:00 AM MATH AND SCIENCES DEPARTMENT CHAIR Ordered by an unspecified provider. Historical Provider Final Res ult documented in this encounter Visit Diagnoses Not on filedocumented in this encounter Care Teams Rotary Cutter Feeder Relationship Specialty Start Date End Date Patricia Maldonado MD [address] [place] [address] PCP - General 02/12/14 documented as of this encounter
== END 2024-06-11 09:40 | disposition home or self-care (01) ==
LOC: ANHIMG 09:43
PROVIDERS: PCP Physician Assistant; Visit Provider Obstetrics & Gynecology Gynecology
DX: M85.89 Other specified disorders of bone density and structure, multiple sites (principal); Z78.0 Asymptomatic menopausal state
CPT/HCPCS: 77080

== ENCOUNTER 2024-06-20 15:17 | Outpatient (CLI) | payer MEDICARE, SELFPAY ==
--- NOTE | ~2024-06-20 | MM_ITS ---
EXAMINATION: MM screening natali BI w colton HISTORY: Screening TECHNIQUE: Craniocaudal and mediolateral oblique 3-D tomosynthesis images were obtained and synthetic 2-D images were generated. CAD analysis was submitted and interpreted. COMPARISON: Comparison to multiple prior studies sequentially, with oldest reviewed study dated 03/20. BREAST PARENCHYMAL COMPOSITION: Not dense: There are scattered areas of fibroglandular density. FINDINGS: There is no evidence of suspicious mass, calcification, or architectural distortion to sugg est malignancy in either breast. There has been no suspicious interval change. IMPRESSION: 1. No mammographic evidence of malignancy. 2. Recommend routine screening mammography in one year. BI-RADS Category 1: Negative Reviewed, dictated and finalized at location A.
--- OUTSIDE RECORDS SUMMARY | 2024-06-20 17:15 | XMS_ITS | Clinical Summary ---
Author Organization [facility] [address] Address [address] [place] [address] Care Team Providers Care Vulcanizer Operator Name Role Phone Patricia Maldonado MD Primary [...] on file Legal Sex Female 3:08 AM PRODUCT TRAINER Gender Identity Not on file Sexual Orientation Not on file Obstetrics History Last Filed Vital Signs Vital Sign Reading Time Taken Comments Blood Pressure 120/76 03/20/2024 8:52 AM PRODUCT TRAINER Pulse 66 03/20/2024 8:52 AM PRODUCT TRAINER Temperature - - Respiratory Rate 16 08/09/2019 10:55 AM CDT Oxygen Saturation 98% 03/20/2024 8:52 AM PRODUCT TRAINER Inhaled Oxygen Concentration - - Weight 80.7 kg (178 lb) 03/20/2024 8:52 AM PRODUCT TRAINER Height 167.6 cm (5' 6 ) 03/20/2024 8:52 AM PRODUCT TRAINER Body Mass Index 28.73 03/20/2024 8:52 AM PRODUCT TRAINER Plan of Treatment Health Maintenance Due Date [...] season) 10/30/202302/2020 Influenza Vaccine (#1) 2023 Insurance T MEDICARE [facility] MEDICARE Address: [facility] [id number] [place] [phone] [facility] MEDICARE Care Teams Vulcanizer Operator Relationship Specialty Start Date End Date Patricia Maldonado MD [address] [facility] [address] [place] [address] PCP - General 02/12/14
--- OUTSIDE RECORDS SUMMARY | 2024-06-20 17:15 | XMS_ITS | Clinical Summary ---
Author Organization [facility] Address [address] [facility] [place] [address] Care Team Providers Care Junior Bookkeeper Name Role Phone Unavailable Primary Care Provider Unavailabl e Source Comments [facility],non-owned Affiliates and Associated Physician Practices is amultiple site organization consisting of ambulatory clinics and hospital sitesin [place], [place], [place] and [place]. This disclosure is being madepursuant to the Care Everywhere program and may not contain all information available regarding this patient. Last updated 17.[facility] Allergies No known active allergies Medications * Be aware that medications may not be up to date on this document. Alwaysverify current medications with the patient. carvedilol (COREG) 1.25 mg/ml SUSP suspension Take by mouth 2 times daily Active HYDROCHLOROTHIA ZIDE PO Active atorvastatin (LIPITOR) 10 MG tablet Take 10 mg by mouth at bedtime Active vitamin D, ergocalciferol, (DRISDOL) 1.25 MG (62989 UT) capsule Take 50,000 Units by mouth [...] on file Legal Sex Female 3:46 PM MENTAL HEALTH PROGRAM SPECIALIST Gender Identity Not on file Sexual Orientation Not on file Last Filed Vital Signs Vital Sign Reading Time Taken Comments Blood Pressure 142/80 01/26/2019 5:05 PM MENTAL HEALTH PROGRAM SPECIALIST Pulse 79 01/26/2019 5:05 PM MENTAL HEALTH PROGRAM SPECIALIST Temperature 37.3 C (99.2 F) 01/26/2019 5:05 PM MENTAL HEALTH PROGRAM SPECIALIST Respiratory Rate 16 01/26/2019 5:05 PM MENTAL HEALTH PROGRAM SPECIALIST Oxygen Saturation 98% 01/26/2019 5:05 PM MENTAL HEALTH PROGRAM SPECIALIST Inhaled Oxygen Concentration - - Weight 77.1 kg (170 lb) 01/26/2019 5:05 PM MENTAL HEALTH PROGRAM SPECIALIST Height 167.6 cm (5' 6 ) 01/26/2019 5:05 PM MENTAL HEALTH PROGRAM SPECIALIST Body Mass Index 27.44 01/26/2019 5:05 PM MENTAL HEALTH PROGRAM SPECIALIST Plan of Treatment Health Maintenance Due Date [...] patient's age to complete this topic Insurance [employer]
--- OUTSIDE RECORDS SUMMARY | 2024-06-20 17:15 | XMS_ITS | Referral Summary ---
Author Organization [facility] [address] Address [address] [place] [address] Care Team Providers Care Desizing Machine Offbearer Name Role Phone Patricia Maldonado MD Primary [...] on file Legal Sex Female 3:08 AM ASSISTANT TO THE PRESIDENT Gender Identity Not on file Sexual Orientation Not on file Last Filed Vital Signs Vital Sign Reading Time Taken Comments Blood Pressure 120/76 03/20/2024 8:52 AM ASSISTANT TO THE PRESIDENT Pulse 66 03/20/2024 8:52 AM ASSISTANT TO THE PRESIDENT Temperature - - Respiratory Rate 16 08/09/2019 10:55 AM CDT Oxygen Saturation 98% 03/20/2024 8:52 AM ASSISTANT TO THE PRESIDENT Inhaled Oxygen Concentration - - Weight 80.7 kg (178 lb) 03/20/2024 8:52 AM ASSISTANT TO THE PRESIDENT Height 167.6 cm (5' 6 ) 03/20/2024 8:52 AM ASSISTANT TO THE PRESIDENT Body Mass Index 28.73 03/20/2024 8:52 AM ASSISTANT TO THE PRESIDENT Plan of Treatment Not on file Insurance [facility] MEDICARE [facility] MEDICARE Address: [facility] [id number] [place] [address] [facility] MEDICARE Care Teams Desizing Machine Offbearer Relationship Specialty Start Date End Date Patricia Maldonado MD [address] [place], [place] [phone] PCP - General 02/12/14
--- OUTSIDE RECORDS SUMMARY | 2024-06-20 17:15 | XMS_ITS | Clinical Summary ---
Author Organization [facility] Address [address] [place] [address] Care Team Providers Care Spray Unit Feeder Name Role Phone Unavailable Primary Care Provider [...] 1 - Tdap) 1973 Mammogram Screening 1994 Pneumococcal Vaccine: 50+ Ye ars (1 of 1 - PCV) 02/07/2004 Zoster Vaccines (1 of 2) 02/07/2004 Dexa Scan (General) 2019 COVID-19 Vaccine ( - 2023-2 5 [...]
--- OUTSIDE RECORDS SUMMARY | 2024-06-20 17:15 | XMS_ITS | Encounter Summary ---
Author Organization [facility] Care Team Providers Care Employee Placement Specialist Name Role Phone Patricia Maldonado MD Primary Care Provider Encounter Details Date Type Department Care Team (Latest Contact Info) Description 04/07/2018 Orders Only [facility] CLINCONV ProviderDonita MD [address] [place] [id number] Social History Tobacco Use Types Packs/Day Years Used Date Smoking Tobacco: Never Smokeless Tobacco: Never Alcohol Use Standard Drinks/Week Comments No 0 (1 standard drink = 0.6 oz pur e alcohol) Comments Unknown Sex and Gender Information Value Date Recorded Sex Assigned at Not on file Legal Sex Female 3:08 AM INTERVENTIONAL CARDIOLOGIST Gender Identity Not on file Sexual Orientation Not on file documented as of this encounter Plan of Treatment Not on file documented as of this encounter Procedures Procedure Name Priority Date/Time Associated Diagnosis Comments PROCEDURE - RESULT 03/23/2018 12 :00 AM INTERVENTIONAL CARDIOLOGIST documented in this encounter Results * PROCEDURE - RESULT (03/23/2018 12:00 AM INTERVENTIONAL CARDIOLOGIST) Narrative 03/23/2018 12:00 AM INTERVENTIONAL CARDIOLOGIST Ordered by an unspecified provider. Historical Provider Final Res ult documented in this encounter Visit Diagnoses Not on filedocumented in this encounter Care Teams Employee Placement Specialist Relationship Specialty Start Date End Date Patricia Maldonado MD [address] [place] [address] PCP - General 02/12/14 documented as of this encounter
== END 2024-06-20 15:18 | disposition home or self-care (01) ==
LOC: ANHIMG 15:19
PROVIDERS: PCP Obstetrics & Gynecology Gynecology; Visit Provider Family Medicine
DX: Z12.31 Encounter for screening mammogram for malignant neoplasm of breast (principal)
CPT/HCPCS: 77063; 77067